=== PATIENT | female | born 1980 | race Two or more races ===

== ENCOUNTER 2019-06-13 20:43 | Emergency (ER) | payer SELFPAY ==
[~2019-06-13] VITALS: Ht 152.4 cm; Wt 143.0 kg
--- NOTE | 2019-06-13 21:00 | NUR ---
PT TO ROOM FROM LOBBY AT THIS TIME.
--- NOTE | 2019-06-13 21:14 | NUR ---
FIRST CONTACT WITH PT. PT C/O INTERMITTENT, NON RADIATING "BURNING" IN LEFT CHEST, UNDER LEFT BREAST, WORSE AT NIGHT, NO AGGRAVATING OR RELIEVING FACTORS, SAW [place] SUNDAY FOR SAME, GIVEN RX OMEPRAZOLE WITH NO RELIEF. PT DENIES ANY PAIN(PAIN LEVEL IS 1/10) AT THIS TIME. ALL MONITORS IN PLACE. CALL LIGHT WITHIN REACH. NSR RATE 80'S ON [employer]. PT'S AOX4. RESPS EVEN AND UNLABORED.
--- NOTE | 2019-06-13 21:15 | NUR ---
PA AT BEDSIDE TO EVALUATE AT THIS TIME.
[2019-06-13] MEDS ORDERED: LORazepam 1MG TABLET PO ONE (21:30)
[2019-06-13 21:33] LABS: BASOPHILS # (AUTO) 0.02 x10^3/uL (0-0.1); BASOPHILS % (AUTO) 0 % (0-1); EOSINOPHILS # (AUTO) 0.06 x10^3/uL (0-0.4); EOSINOPHILS % (AUTO) 1 % (1-7); LYMPHOCYTES # (AUTO) 1.88 x10^3/uL (1-3.4); LYMPHOCYTES % (AUTO) 37 % (22-44); MD NO; MEAN CORPUSCULAR HEMOGLOBIN 31.5 pg (27.0-34.8); MEAN CORPUSCULAR HGB CONC 33.9 g/dL (32.4-35.8); MEAN CORPUSCULAR VOLUME 92.9 fL (80-100); MEAN PLATELET VOLUME 7.5 fL (7.4-10.4); MONOCYTES # (AUTO) 0.31 x10^3/uL (0.2-0.8); MONOCYTES % (AUTO) 6 % (2-9); NEUTROPHILS # (AUTO) 2.85 x10^3/uL (1.8-6.8); NEUTROPHILS % (AUTO) 56 % (42-75); PLATELET COUNT 223 x10^3/uL (130-400); RED CELL DISTRIBUTION WIDTH 13.6 % (9.6-15.2)
[2019-06-13] MEDS ORDERED: LORazepam 1MG TABLET ONE (21:40)
[2019-06-13 21:45] LABS: ALBUMIN 3.4 g/dL (3.4-5.0); ANION GAP 7 mmol/L (5-15); CALCIUM 9.1 mg/dL (8.5-10.1); CHLORIDE 104 mmol/L (98-107); CREATININE 0.79 mg/dL (0.55-1.02)
[2019-06-13 21:46] VITALS: BP 121/64
--- NOTE | 2019-06-13 21:46 | NUR ---
PT MEDICATED PER EMAR. PT TOLERATED WELL.
[2019-06-13 21:48] LABS: TROPONIN I < 0.015 ng/mL (0.000-0.045)
--- NOTE | 2019-06-13 22:17 | NUR ---
TASK RN: PT REPORTS IMPROVED S/S AFTER RX. DC EDUCATION PROVIDED, PT DEMONSTRATES UNDERSTANDING. PT AMBULATED STEADILY TO DC WITH RN. SISTER IN LOBBY TO TRANSPORT PT HOME.
== END 2019-06-13 22:19 | disposition home or self-care (01) ==
LOC: ED 21:44
DX: R07.89 Other chest pain (principal); E11.9 Type 2 diabetes mellitus without complications; E66.01 Morbid (severe) obesity due to excess calories; Z68.44 Body mass index [BMI] 60.0-69.9, adult
CPT/HCPCS: 36415; 71045; 80048; 82040; 84484; 85025; 93005; 99285